=== PATIENT | male | born 1955 | race Caucasian/White ===

== ENCOUNTER 2017-10-21 15:23 | Emergency (ER) | payer OTHER ==
[~2017-10-21] VITALS: Ht 165.1 cm; Wt 84.6 kg
[2017-10-21] MEDS ORDERED: KEFLEX500 MG PO (19:38)
[2017-10-21] MEDS ORDERED: BACTRIM,SEPT1 TABLET PO (19:42)
[2017-10-21 19:57] VITALS: BP 154/100
== END 2017-10-21 19:58 | disposition home or self-care (01) ==
LOC: EME 15:23
PROC: 0HQGXZZ Repair Left Hand Skin, External Approach (ICD-10-PCS; principal; 2017-10-21)
DX: S61.217A Laceration without foreign body of left little finger without damage to nail, initial encounter (principal); W23.0XXA Caught, crushed, jammed, or pinched between moving objects, initial encounter; Y93.89 Activity, other specified; Z88.6 Allergy status to analgesic agent; Z88.0 Allergy status to penicillin
CPT/HCPCS: 73140; 99281; 99283; S0020